=== PATIENT | female | born 1970 | race Caucasian/White ===

== ENCOUNTER 2018-09-27 06:23 | Emergency (ER) | payer MEDICAID ==
[~2018-09-27] VITALS: Ht 149.9 cm; Wt 62.6 kg
[2018-09-27] MEDS ORDERED: TRAZ-212 PO (06:31)
[2018-09-27] MEDS ORDERED: DIPHENHYDRAMINE 50MG/ML VIAL IV ONE (07:15)
[2018-09-27 07:52] LABS: BASOPHILS % 0.8 % (0.0-2.0); EOSINOPHILS % 0.5 % (0.0-5.0); HEMATOCRIT. 44.2 % (36.0-48.0); HEMOGLOBIN. 15.1 g/dL (12.0-16.0); MEAN CORPUSCULAR HEMOGLOBIN 30.6 pg (28.0-32.0); MEAN CORPUSCULAR VOLUME 89.6 fL (81.0-99.0); MEAN PLATELET VOLUME 8.5 fl (7.4-10.4); MONOCYTES % 6.7 % (2.0-8.0); PLATELET 287 x1000/uL (130-400); RED BLOOD CELL COUNT 4.93 mill/uL (4.2-5.4)
[2018-09-27 08:00] LABS: CHLORIDE 103 mEq/L (98-107)
[2018-09-27] MEDS ORDERED: SODIUM CHLORIDE 0.9% 1,000 ML IV ONE (08:00)
[2018-09-27 08:04] LABS: HCG SCREEN NEGATIVE
[2018-09-27 08:26] LABS: CLARITY URINE CLEAR (CLEAR); COLOR URINE RED (YELLOW); KETONES URINE NEGATIVE (NEGATIVE); LEUKOCYTE ESTERASE URINE TRACE (NEGATIVE); NITRITE URINE NEGATIVE (NEGATIVE); OCCULT BLOOD URINE 3+ (NEGATIVE); PH URINE >=9.0 (4.5-8.0); PROTEIN URINE 1+ (NEGATIVE); SPECIFIC GRAVITY URINE 1.004 (1.005-1.030); UROBILINOGEN URINE 0.2 E.U./dL (0.2-1.0)
[2018-09-27 08:48] VITALS: BP 127/58
== END 2018-09-27 08:50 | disposition home or self-care (01) ==
LOC: ER 06:23
DX: N39.0 Urinary tract infection, site not specified (principal); F41.9 Anxiety disorder, unspecified; R03.0 Elevated blood-pressure reading, without diagnosis of hypertension
CPT/HCPCS: 36415; 81025; 84703; 96374; 99283; J1200

== ENCOUNTER 2018-11-24 10:06 | Emergency (ER) | payer MEDICAID ==
[~2018-11-24 10:06] MED LIST: TRAZ-212 PO
== END 2018-11-24 11:44 | disposition left against medical advice (07) ==
LOC: ER 10:24
DX: R10.9 Unspecified abdominal pain (principal); Z53.21 Procedure and treatment not carried out due to patient leaving prior to being seen by health care provider

== ENCOUNTER 2018-12-14 23:05 | Emergency (ER) | payer MEDICAID, OTHER ==
[~2018-12-14] VITALS: Ht 152.4 cm; Wt 58.0 kg
[2018-12-14 23:07] VITALS: BP 134/88
== END 2018-12-15 02:30 | disposition left against medical advice (07) ==
LOC: ER 23:05
DX: R51 Headache (principal); Z53.21 Procedure and treatment not carried out due to patient leaving prior to being seen by health care provider